=== PATIENT | female | born 1940 | race Two or more races ===

== ENCOUNTER 2020-10-31 06:02 | Day surgery (SDC) | payer MEDICARE, OTHER ==
[2020-10-24 11:59] LABS: BASOPHILS # (AUTO) 0.1 X10'3 (0-0.2); BASOPHILS % (AUTO) 1.2 % (0-1); EOSINOPHILS # (AUTO) 0.5 X10'3 (0-0.9); EOSINOPHILS % (AUTO) 6.9 % (0-6); LYMPHOCYTES # (AUTO) 2.1 X10'3 (1.1-4.8); LYMPHOCYTES % (AUTO) 28.2 % (21-51); MEAN CORPUSCULAR HEMOGLOBIN 32.1 PG (27.0-31.0); MEAN CORPUSCULAR HGB CONC 33.6 g/dL (33.0-36.5); MEAN CORPUSCULAR VOLUME 95.5 FL (78-98); MEAN PLATELET VOLUME 8.2 FL (7.4-10.4); MONOCYTES # (AUTO) 0.7 X10'3 (0-0.9); MONOCYTES % (AUTO) 9.4 % (2-12); NEUTROPHILS # (AUTO) 4.1 X10'3 (1.8-7.7); NEUTROPHILS % (AUTO) 54.3 % (42-75); PRE OP HEMATOCRIT 40.1 % (35.0-45.0); PRE OP HEMOGLOBIN 13.5 g/dL (12.0-16.0); PRE OP PLATELET COUNT 261 X10'3 (140-440); RED CELL DISTRIBUTION WIDTH 12.9 % (11.5-14.5)
[2020-10-24 12:16] LABS: ALBUMIN 3.7 G/DL (3.4-5.0); ALBUMIN/GLOBULIN RATIO 1.1 (1.1-1.5); ALKALINE PHOSPHATASE 89 IU/L (46-116); BLOOD UREA NITROGEN 23 MG/DL (7-18); BUN/CREATININE RATIO 27.1 (6.6-38.0); CALCIUM 8.7 MG/DL (8.5-10.1); CHLORIDE 105 MMOL/L (99-107); CREATININE 0.85 MG/DL (0.40-0.90); PRE OP ALT 27 U/L (30-65); PRE OP ANION GAP 11 (8-16); PRE OP AST 17 U/L (10-37); PRE OP BILIRUB, TOTAL 0.6 MG/DL (0.0-1.0); PRE OP GLUCOSE 163 MG/DL (70-104); PRE OP POTASSIUM 3.9 MMOL/L (3.4-5.1); PRE OP SODIUM 140 MMOL/L (135-145); TOTAL CARBON DIOXIDE 24.2 MMOL/L (24-32); TOTAL PROTEIN 7.2 G/DL (6.4-8.2); eGFR 64 ML/MIN
[~2020-10-31] VITALS: Ht 165.1 cm; Wt 95.0 kg
[~2020-10-31 06:02] MED LIST: AMLO2.5T2 PO; ASPI-529 PO; BIOT5000 PO; CHOL50004 PO; ESOM40CA PO; GLUC-221 PO; LOSA50TA3 PO; MAGN400C PO; METH10005 PO; MULT-1085 PO; OMEG1CAP46 PO; PREVAGEN PO; ROSU10TA2 PO; TURM500C4 PO; cefazolin/dext.iso 2gm/100ml IV ONE; famotidine 20mg tablet PO ONE; ringers solution, lacted 1,000 ML IV SCH
[2020-10-31 06:15] VITALS: BP_SYST 160; BP_SYST 190; BP_DIAS 69
[2020-10-31] MEDS ORDERED: BUPIVAcaine/PF 2.5mg/ml (0.25%) 10ml vial ONE (06:16)
[2020-10-31] MEDS ORDERED: fentaNYL/PF 50MCG/1 ML 2ML syringe ONE (07:57)
[2020-10-31] MEDS ORDERED: midazolam 1 mg/ML 2ml injection ONE (07:57)
[2020-10-31 08:18] VITALS: BP 129/58
--- NOTE | 2020-10-31 08:18 | NUR ---
Received from OR via [facility] IN STABLE CONDITION , accompanied by Anesthesiologist and CHUCKING MACHINE OPERATOR report given by CHUCKING MACHINE OPERATOR AND Anesthesiolgist. Addendum: 10/31/20 at 0839 by Keisha Harris RN Amended: Links added.
[2020-10-31] MEDS ORDERED: ringers solution, lacted 1,000 ML IV SCH (08:25)
[2020-10-31] MEDS ORDERED: morphine 4 MG/ML inj SYRINge IV PRN (08:25)
[2020-10-31] MEDS ORDERED: meperidine/PF 25mg/ml syringe IV PRN ×3 (08:25)
[2020-10-31] MEDS ORDERED: proCHLORperazine 10 MG/2 ml inj IV PRN (08:25)
[2020-10-31] MEDS ORDERED: morphine 2 MG/ML inj. syringe IV PRN (08:25)
[2020-10-31] MEDS ORDERED: ondansetron/PF 4mg/2ml inj IV PRN (08:25)
[2020-10-31 08:30] VITALS: BP 145/59
[2020-10-31 08:40] VITALS: BP 151/61
[2020-10-31 08:50] VITALS: BP 148/62
[2020-10-31 09:20] VITALS: BP 153/62
--- NOTE | 2020-10-31 09:28 | NUR ---
PATIENT DISCHARGED FROM PACU AFTER VERBAL AND WRITTEN DISCHARGE INSTRUCTIONS GIVEN. PATIENT GAVE VERBAL UNDERSTANDING OF INSTRUCTIONS GIVEN. PATIENT LEFT FACILITY VIA WHEELCHAIR WITH RN. Addendum: 10/31/20 at 1009 by Keisha Harris RN Amended: Links added.
== END 2020-10-31 09:28 | disposition home or self-care (01) ==
LOC: PAS 06:02
PROVIDERS: ATTEND Orthopaedic Surgery Hand Surgery
DX: M65.4 Radial styloid tenosynovitis [de Quervain] (principal); E78.00 Pure hypercholesterolemia, unspecified; I10 Essential (primary) hypertension; E66.9 Obesity, unspecified; Z68.35 Body mass index [BMI] 35.0-35.9, adult; Z79.899 Other long term (current) drug therapy; Z79.82 Long term (current) use of aspirin; Z98.890 Other specified postprocedural states; Z90.710 Acquired absence of both cervix and uterus; Z90.49 Acquired absence of other specified parts of digestive tract; Z87.891 Personal history of nicotine dependence; Z72.89 Other problems related to lifestyle; Z86.14 Personal history of Methicillin resistant Staphylococcus aureus infection
CPT/HCPCS: 25000; 36415; 80053; 82948; 85025; 93005; J2250; J3010; J3490; Z7506; Z7512; A4215; J7120

== ENCOUNTER 2021-09-02 11:45 | Emergency (ER) | payer MEDICARE, OTHER ==
[~2021-09-02] VITALS: Ht 165.1 cm; Wt 95.0 kg
[~2021-09-02 11:45] MED LIST changes: -cefazolin/dext.iso 2gm/100ml IV ONE; -famotidine 20mg tablet PO ONE; -ringers solution, lacted 1,000 ML IV SCH
[2021-09-02 12:31] VITALS: BP 133/87
[2021-09-02] MEDS ORDERED: BENZ-38 PO (12:38)
== END 2021-09-02 12:44 | disposition home or self-care (01) ==
LOC: ER 11:46
DX: J22 Unspecified acute lower respiratory infection (principal); I10 Essential (primary) hypertension; G89.29 Other chronic pain; Z90.49 Acquired absence of other specified parts of digestive tract; Z90.710 Acquired absence of both cervix and uterus; Z88.1 Allergy status to other antibiotic agents; Z88.5 Allergy status to narcotic agent; Z88.8 Allergy status to other drugs, medicaments and biological substances; Z79.82 Long term (current) use of aspirin; Z79.899 Other long term (current) drug therapy
CPT/HCPCS: 93005; 99283